=== PATIENT | male | born 1960 | race Caucasian/White ===

== ENCOUNTER 2024-03-17 09:35 | Outpatient (AMB) | payer MEDICARE, MEDICAID, SELFPAY ==
--- NOTE | 2024-03-17 09:51 | A.OFFVIS_ITS ---
Vital Signs 03/17/24 09:52 Height 5 ft 9 in Weight 197 lb 4 oz BMI 29.1 BP 122/68 Blood Pressure Location Rt brachial Position Sitting Respiration 16 Pulse 64 Pulse Source Pulse Oximeter Pulse Oximetry (%) 97 Oxygen Delivery Method Room Air Intake Visit Reasons: [id number] See comments Intake Note: New pt presents for consultation for Parkinson's and sleep disturbance. 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 He lost consciousness and was in the hospital. Since then he has short term memory issues.He strated noticing tremors in his left hand .he was told he had parkinsons disease. But had declined medications. His tremors are in his left hand at rest , posture , action and worsens with anxiety.He has trouble writing . No change in voice or drooling. He reports chronic sleep issues- frequent arousals, snoring and daytime sleepiness. He has vivid dreams. He has some gait issues - looses his balance a lot. He has chronic neck and back issues. [facility] Medical History (Updated 03/17/24 @ 10:24 by Shantelle Lopez MD) Hypersomnia Witnessed apneic spells Snoring Coarse tremors [place] user Tobacco use Migraine without aura Systolic CHF Essential hypertension Post concussive syndrome History of traumatic brain injury Hemiparkinsonism ICD (implantable cardioverter-defibrillator) in place Cyst of epididymis Hydrocele GERD (gastroesophageal reflux disease) Lumbar disc herniation Multiple pulmonary nodules Major depression, recurrent Pure hypercholesterolemia Obesity Surgical History History of implantable cardioverter-defibrillator (ICD) insertion Status post biventricular cardiac pacemaker insertion Social History Household Members: Family Housing: Apartment Alcohol intake: current Comment: Social Patient Tobacco Use Status: Former Tobacco user Years Smoked: 35 years Substance Use Type: Marijuana Substance Use Frequency Other:: Vape Physical Exam Vital Signs: Last Vital Signs Pulse 64 03/17/24 09:52 Resp 16 03/17/24 09:52 BP 122/68 03/17/24 09:52 Pulse Ox 97 03/17/24 09:52 Oxygen Delivery Method Room Air 03/17/24 09:52 BMI result Body Mass Index 29.1 Const General: cooperative and comfortable Nutritional Appearance: average body habitus Orientation/consciousness: patient oriented x3 Eyes Pupils: Equal, round and reactive pupils present Neuro Other: Good facial expression, blink Speech- normal Mallampatti grade 4 Mild intermittent tremors left hand at rest and posture No cog wheel rigidity FFm and foot taps limited due to joint pain Gait- back pain , antalgic General: patient oriented x3, tone normal, moves all extremities and no focal motor deficits Cranial nerves: Yes Facial sensation intact/muscles of mastication intact, Yes Equal, round and reactive pupils present, Yes Bilaterally intact EOM present, Yes Nystagmus not present, Yes Normal facial strength present and Yes Midline tongue present Motor exam (neuro): 5/5 motor strength present throughout and Normal motor muscle tone present throughout Deep tendon reflexes (DTR's): Right triceps reflex intensity grade: 1+, Left triceps reflex intensity grade: 1+, Rt Biceps (C5, C6): 1+, Left biceps reflex intensity grade: 1+, Right brachioradialis reflex intensity grade: 0, Left brachioradialis reflex intensity grade: 0, Right patellar reflex intensity grade: 0 and Left patellar reflex intensity grade: 0 Coordination: [id number] test normal Psych Appearance: grossly normal Assessment & Plan Assessment & Plan (1) Coarse tremors: Comment: atypical tremors post injury - will monitor for extrapyramidal symptoms. No evidence of parkinsons on today's exam Code(s): G25.2 - Other specified forms of tremor Category: Medical (2) Snoring: Code(s): R06.83 - Snoring Category: Medical (3) Witnessed apneic spells: Code(s): R06.81 - Apnea, not elsewhere classified Category: Medical (4) Hypersomnia: Code(s): G47.10 - Hypersomnia, unspecified Category: Medical Plan Will monitor for any signs of parkinsons disease. No evidence of parkinsons on todays exam Sleep study to r/o sleep apnea. Orders: Orders RT PSG in-lab sleep study Today G47.10 - Hypersomnia, unspecified, R06.81 - Apnea, not elsewhere classified, R06.83 - Snoring Coding Level of Care Code New Pt Level 4 (92809) Diagnoses Coarse tremors G25.2 Snoring R06.83 Witnessed apneic spells R06.81 Hypersomnia G47.10
[2024-03-17 09:52] VITALS: BP 122/68; PULSE 64; RESP 16; O2SAT 97; BMI 29.1
== END 2024-03-17 10:29 | disposition home or self-care (01) ==
PROVIDERS: PCP Internal Medicine; Visit Provider Psychiatry & Neurology Neurology
DX: G25.2 Other specified forms of tremor (principal); R06.83 Snoring; R06.81 Apnea, not elsewhere classified; G47.10 Hypersomnia, unspecified
CPT/HCPCS: 99204

== ENCOUNTER → 2024-03-17 09:35 | Outpatient (BNVA) | payer MEDICARE, MEDICAID, SELFPAY | PROVIDERS: PCP Internal Medicine; Visit Provider Psychiatry & Neurology Neurology | DX: G25.2 Other specified forms of tremor (principal); R06.83 Snoring; R06.81 Apnea, not elsewhere classified; G47.10 Hypersomnia, unspecified | CPT/HCPCS: 99202 ==

== ENCOUNTER → 2024-03-28 20:30 | Outpatient (REF) | payer MEDICARE, MEDICAID, SELFPAY | LOC: HO.SL 20:30 | PROVIDERS: PCP Internal Medicine; Visit Provider Psychiatry & Neurology Neurology | DX: R06.83 Snoring (principal); R06.81 Apnea, not elsewhere classified; G47.10 Hypersomnia, unspecified | CPT/HCPCS: 95810 ==

== ENCOUNTER → 2024-03-28 22:42 | Outpatient (BNV) | payer MEDICARE, MEDICAID, SELFPAY | PROVIDERS: PCP Internal Medicine; Visit Provider Psychiatry & Neurology Neurology | DX: G47.61 Periodic limb movement disorder (principal); G47.37 Central sleep apnea in conditions classified elsewhere | CPT/HCPCS: 95810 ==

== ENCOUNTER 2025-02-05 09:31 | Outpatient (AMB) | payer MEDICARE, MEDICAID, SELFPAY ==
[2025-02-05 09:41] VITALS: BP 100/80; PULSE 89; O2SAT 95; BMI 30.4
--- NOTE | 2025-02-05 09:41 | MHC.OFFVIS ---
Vital Signs 02/05/25 09:41 Height 5 ft 9 in Weight 206 lb BMI 30.4 BP 100/80 Blood Pressure Location Rt brachial Position Sitting Pulse 89 Pulse Source Pulse Oximeter Pulse Oximetry (%) 95 Oxygen Delivery Method Room Air Intake Visit Reasons: f/u for Parkinson's Assistant Corporate Secretary Required: No Accompanied by: Self / Same As Patient Allergies No Known Allergies Allergy (Verified 02/05/25 09:49) HPI Comments Details: 64y/o left handed male comes for follow up . 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 He lost consciousness and was in the hospital. Since then he has short term memory issues.He started noticing tremors in his left hand .he was told he had parkinsons disease. But had declined medications. His tremors are in his left hand at rest , posture , action and worsens with anxiety.He has trouble writing . No change in voice or drooling. He reports chronic sleep issues- frequent arousals, snoring and daytime sleepiness. He has vivid dreams. He has some gait issues - looses his balance a lot. He has chronic neck and back issues. [facility] Medical History (Updated 02/05/25 @ 10:03 by Shantelle Lopez MD) Periodic limb movements of sleep Central sleep apnea Hypersomnia Witnessed apneic spells Snoring Coarse tremors [place] user Tobacco use Migraine without aura Systolic CHF Essential hypertension Post concussive syndrome History of traumatic brain injury Hemiparkinsonism ICD (implantable cardioverter-defibrillator) in place Cyst of epididymis Hydrocele GERD (gastroesophageal reflux disease) Lumbar disc herniation Multiple pulmonary nodules Major depression, recurrent Pure hypercholesterolemia Obesity Surgical History History of implantable cardioverter-defibrillator (ICD) insertion Status post biventricular cardiac pacemaker insertion Social History Household Members: Family Housing: Apartment Alcohol intake: current Comment: Social Patient Tobacco Use Status: Former Tobacco user Years Smoked: 35 years Substance Use Type: Marijuana Physical Exam Vital Signs: Last Vital Signs Pulse 89 02/05/25 09:41 BP 100/80 02/05/25 09:41 Pulse Ox 95 02/05/25 09:41 Oxygen Delivery Method Room Air 02/05/25 09:41 BMI result Body Mass Index 30.4 Const General: cooperative and comfortable Nutritional Appearance: average body habitus Orientation/consciousness: patient oriented x3 Eyes Pupils: Equal, round and reactive pupils present Neuro Other: Good facial expression, blink Speech- normal Mallampatti grade 4 Mild intermittent tremors left hand at rest and posture No cog wheel rigidity FFm and foot taps limited due to joint pain Gait- back pain , antalgic General: patient oriented x3, tone normal, moves all extremities and no focal motor deficits Cranial nerves: Yes Facial sensation intact/muscles of mastication intact, Yes Equal, round and reactive pupils present, Yes Bilaterally intact EOM present, Yes Nystagmus not present, Yes Normal facial strength present and Yes Midline tongue present Motor exam (neuro): 5/5 motor strength present throughout and Normal motor muscle tone present throughout Coordination: [id number] test normal Psych Appearance: grossly normal Assessment & Plan Assessment & Plan (1) Central sleep apnea: Code(s): G47.31 - Primary central sleep apnea Category: Medical (2) Periodic limb movements of sleep: Code(s): G47.61 - Periodic limb movement disorder Category: Medical Plan Discussed sleep study results in detail - i will trial him on AutoPAP 5-20 cm fo wtaer and follow up to ensure compliance and therapy response Check ferritin B12 Vit D Coding Level of Care Code Est Pt Level 4 (06573) Complex EM visit Add On G2211 Diagnoses Central sleep apnea G47.31 Periodic limb movements of sleep G47.61
--- OUTSIDE RECORDS SUMMARY | 2025-02-05 09:57 | XMS_ITS | Clinical Summary ---
Author Organization [facility] Address [address] [address] Phone Care Team Providers Care Automobile Engine Assembler Name Role Phone Duke Jarvis MD Primary Care Provider Allergies No known active allergies Medications sacubitriL-vals carissa (Entresto) 24-26 mg per tablet Take 1 Tablet by mouth 2 times daily. 03/18/20 24 Active acetaminophen (TYLENOL 8 HOUR) 650 mg 8 hr tablet TAKE 1 TABLET BY MOUTH EVERY 8 HOURS NEEDED FOR PAIN 270 tablet 07/14/19 25 Active dapagliflozin propanediol (Farxiga) 10 mg tablet Take 1 tablet (10 mg total) by mouth 1 (one) time each day. 90 tablet 2 07/14/19 25 Active simvastatin (ZOCOR) 20 mg tablet TAKE 1 TABLET BY MOUTH EVERYDAY AT BEDTIME 90 tablet 1 01/08/20 25 Active spironolactone (ALDACTONE) 25 mg tablet TAKE 1 TABLET BY MOUTH EVERY DAY 90 tablet 1 01/08/20 25 Active metoprolol succinate (TOPROL-XL) 25 mg 24 hr tablet TAKE 1 TABLET BY MOUTH EVERY DAY 90 tablet 1 01/08/20 25 Active furosemide (LASIX) 40 mg tablet TAKE 1 TABLET BY MOUTH EVERY DAY 90 tablet 1 01/08/20 25 Active cholecalciferol (VITAMIN D-3) 125 mcg (5,000 unit) capsule Take 1 Capsule by mouth daily. 04/28/20 24 025 Discontinued(Th erapy completed) pantoprazole (PROTONIX) 40 mg EC tablet TAKE 1 TABLET BY MOUTH EVERY DAY 90 tablet 1 07/16/19 25 025 Discontinued(Th erapy completed) spironolactone (ALDACTONE) 25 mg tablet TAKE 1 TABLET BY MOUTH EVERY DAY 90 tablet 10/08/19 25 025 Discontinued simvastatin (ZOCOR) 20 mg tablet TAKE 1 TABLET BY MOUTH EVERYDAY AT BEDTIME 90 tablet 10/08/19 25 025 Discontinued furosemide (LASIX) 40 mg tablet TAKE 1 TABLET BY MOUTH EVERY DAY 90 tablet 10/08/19 025 Discontinued metoprolol succinate (TOPROL-XL) 25 mg 24 hr tablet TAKE 1 TABLET BY MOUTH EVERY DAY 90 tablet 10/08/19 025 Discontinued Active Problems Problem Noted Date Diagnosed Date Osteoporosis with current pathological fracture 04/15/2024 Compression fracture of lumb ar vertebra with delayed healing 04/10/2024 Overview (06/05/2024): Last Assessment & Plan: Patient describes low back pain, has history of falling a few times a little over 1 year ago, recalls 1 fall in the snow when he slipped in particular. He describes left posterior leg numbness, no weakness or radicular pain. There is mention of Parkinson's disease in another provider's note, patient states that was ruled out and he does not have Parkinson's disease. He states also contributing to his pain is from a (? Diaphragmatic) hernia causing anterior pain. On a good day his pain would be 4/10, pain tends to be worse at nighttime and he is not sleeping well, rates that pain 7-10/10. He had bone density study 03/27/2024 that showed very low bone density for his age. Mr. Slade had MRI lumbar spine 11/20/2023 at [facility] that showed multilevel degenerative changes, superior endplate compression fracture L5 with marrow edema on STIR imaging, also possible subtle endplate fracture along left superior S1 endplate as well. I reviewed the MRI images with the patient in detail. Dr. Dawn reviewed MRI today as well. Dr. Dawn recommends checking updated lumbar spine x-ray to see if there has been any change in the height of the L5 vertebral body, this MRI was done back in October, it is likely that the compression fracture may have healed over the last 4-5 months. I talked to the patient about treatment options for acute compression fractures, including kyphoplasty, which patient states he would not be interested in, but is willing to go for the lumbar x-ray since he still has back pain. We also talked about trying acupuncture. I asked him to call with any worsening symptoms, concerns or questions. All questions answered. ADDENDUM: I called and spoke with patient's healthcare proxy Tiffany Gonzalez, his niece, let her know that to my eye L5 compression fracture appears stable. They will try acupuncture and call with an update. All questions answered. (Patient came with his sister Sobeida to the office visit.). Other emphysema ([facility] V24, [facility] V28) 12/05 Heart failure with reduced e jection fraction ([facility] V24, [facility] V28) 07/06/2023 Overview (06/05/2024): Last Assessment & Plan: The patient appears euvolemic on exam today based on his report. He has not needed any of his as needed Lasix! This is fantastic news. Unfortunate, his blood pressure precludes further titration of his ARNI, but he is doing well on his current medication regimen. He is BiV paced 100% of the time and his heart logic is 0 indicating euvolemia. For now, continue his SGLT2 inhibitor, ARNI, beta-adam and MRA. Update his echocardiogram at his convenience to follow on GDMT along with his WAREHOUSE MATERIAL HANDLER. The patient seems to have a GI issue, possibly a hernia. He is agreeable to GI evaluation. Apparently, he declined this with his PCP asked previously, but he agrees to it today for me. There are no cardiovascular contraindications to any GI workup at this time. Hiatal hernia 05/06/2018 Obesity (BMI 30-39.9) 04/02/2018 Episode of recurrent major d epressive disorder ([facility] V24) 03/08/2018 Pure hypercholesterolemia 03/08/2018 Overview (06/05/2024): Last Assessment & Plan: Well-controlled lipid profile without known coronary artery disease on current dose statin. Continue the same GERD (gastroesophageal reflux disease) 8 Overview (06/05/2024): 03/2013 small hiatal hernias w/GERD; gastritis of gastric antrum; no path report Lumbar disc herniation 02/06/2018 Overview (06/05/2024): 07/2015 L5-S1, interval enlargement when compared to 2014; 2011 fracture deformity of L2 Multiple pulmonary nodules 02/06/2018 Overview (06/05/2024): 10/2016 CT scan small pulmonary nodules measuring up to 6 mm; stable on CT 04/2018 follows with pulmonary Cyst of epididymis 01/29/2018 Hydrocele 01/29/2018 Hemiparkinsonism (CMS/HCC V24, CMS/HCC V28) 12/31 Overview (06/05/2024): Left upper arm tremor, previously on Sinemet, Neupro patch and Selegiline and undergoing cognitive remediation therapy through neurology 2 years ago. ICD (implantable cardioverter-defibrillator) in place 01/23/2018 Overview (06/05/2024): 2016 Essential hypertension 01/01/2018 Overview (06/05/2024): Last Assessment & Plan: Patient's blood pressure is well-controlled on his current regimen of SGLT2, ARNI, beta-adam and MRA. Continue to follow Marijuana use 01/01/2018 Overview (06/05/2024): Cbd oil vapor Migraine without aura and wi thout status migrainosus, not intractable 01/01/2018 Post concussive syndrome 01/01/2018 Overview (06/05/2024): S/p trauma 2011 Encounters Date Type Department Care Team Description 01/23/2025 1:15 PM EDT Ancillary Procedure [facility] [address] [facility] [address] [place] [address] 01/09/2025 1:00 PM EDT Office Visit Adult Medicine [address] [address] Nancy Angeles PA Essential hypertension (Primary Dx); Pure hypercholesterolemia ; Heart failure with reduced ejection fraction (CMS/HCC V24, CMS/HCC V28); ICD (implantable cardioverter-defibri llator) in place; Epigastric pain; Vitamin D deficiency 12/22/2024 Telephone [facility] [address] [facility] [address] [place] [address] Elizabeth Jin MD NEOS --Left Shoulder Arthroscopy (Left Shoulder Arthroscopy -- [facility]OS ) 12/16/2024 10:40 AM EDT Ancillary Procedure [facility] [address] [facility] [address] [place] [address] 12/15/2024 Telephone Adult Medicine [address] [phone] Duke Jarvis MD Referral 11/07/2024 5:10 AM EDT Ancillary Procedure [facility] [address] [facility] [address] [place] [address] from Last 3 Months Immunizations Name Administration Dates Next Due Influenza trivalent, with pr eservative (Fluzone; Afluria) 6mo and older 03/18/2024 Pneumococcal conjugate 20 va lent (Prevnar 20, PCV 20) 2mo and older 03/18/2024 Tdap Tetanus diptheria acell ular pertussis (Boostrix; Adacel) 7yo and older 03/18/2024 Surgical History Surgery Date Site/Laterality Comments OTHER SURGICAL HISTORY 2016 PROCEDURE: HISTORICAL ICD UPPER GASTROINTESTINAL ENDOSCOPY 03/10/2013 PROCEDURE: UPPER GI ENDOSCOPY/EXAM; COMMENT: small hiatal hernias w/GERD; gastritis of gastric antrum; no path report Medical History Medical History Date Comments Essential hypertension 01/01/2018 DX:Essent ial hypertension Migraine without aura and wi thout status migrainosus, not intractable 01/01/2018 DX:Migraine withou t aura and without status migrainosus, not intractable Marijuana use 01/01/2018 DX:Marijuana use ; COMMENT: Cbd oil vapor History of tobacco use 01/01/2018 DX:Histor y of tobacco use ICD (implantable cardioverter-defibrillator) in place 01/23/2018 DX:ICD (implantab le cardioverter-defibrillator) in place; COMMENT: 2015 Post concussive syndrome 01/01/2018 DX:Post concussive syndrome History of traumatic brain injury 01/23/2018 DX:History of traumatic brain injury; COMMENT: 2010 Hemiparkinsonism (CMS/HCC V2 4, CMS/HCC V28) 01/23/2018 DX:Hemiparkinsonism (HCC); C OMMENT: Post traumatic unilateral- Left side Lumbar disc herniation 02/06/2018 DX:Lumbar disc herniation; COMMENT: 07/2015 L5-S1, interval enlargement when compared to 2014; 2011 fracture deformity of L2 GERD (gastroesophageal reflu x disease) 02/06/2018 DX:GERD (gastroesophageal re flux disease); COMMENT: 03/2013 small hiatal hernias w/GERD; gastritis of gastric antrum; no path report Hydrocele 01/29/2018 DX:Hydrocele Systolic congestive heart fa ilure, NYHA class 2 (CMS/HCC V24, CMS/HCC V28) 01/01/2018 DX:Systolic congestive heart failure, NYHA class 2 ([facility]); COMMENT: 35 % on nuclear echo 09/2017. Follows with cardiology NICM S/p AICD Obesity (BMI 30-39.9) 04/02/2018 DX:Obesity (BMI 30-39.9) Pure hypercholesterolemia 03/08/2018 DX:Pur e hypercholesterolemia Episode of recurrent major d epressive disorder (CMS/HCC V24) 03/08/2018 DX:Episode of recurrent ellis r depressive disorder (HCC) Cyst of epididymis 01/29/2018 DX:Cyst of ep ididymis Multiple pulmonary nodules 02/06/2018 DX:Mu ltiple pulmonary nodules; COMMENT: 10/2016 CT scan small pulmonary nodules measuring up to 6 mm; stable on CT 04/2018 follows with pulmonary Arthritis DX:Arthritis Anxiety and depression DX:Anxiet y and depression Difficulty balancing DX:Difficul ty balancing Family History Medical History Relation Name Comments Hypertension Father unknown cause, likely cancer Diabetes Mother ESRD, Hypertens ion Heart failure Mother Lung cancer Sister 1 Leukemia Sister 2 Relation Name Status Comments Brother Alive Father Mother Alive Sister 1 Sister 2 Social History Tobacco Use Types Packs/Day Years Used Date Smoking Tobacco: Former Cigarettes Q uit: 01/02/2008 Smokeless Tobacco: Never Tobacco Cessation:Counseling Given: Not Answered Alcohol Use Standard Drinks/Week Comments No 0 (1 standard drink = 0.6 oz pur e alcohol) Housing Instability Answer Date Recorde d Are you worried that in the next 2 months you may not have stable housing? No 01/09/2025 Food Access & Nutrition Answer Date Rec orded Do you have access to a vari ety of food including fruits and vegetables? Yes 01/09/2025 Health Literacy Answer Date Recorded How often do you need to hav e someone help you when you read instructions, pamphlets, or other written material from your doctor or pharmacy? Never 01/09/2025 Caregiver: How often do you need to have someone help you when you read instructions, pamphlets, or other written material from your doctor or pharmacy? Not on file 01/09/2025 Financial Risk Answer Date Recorded How hard is it for you to pa y for the very basics like food, housing, medical care, and air conditioning / heating? Not very hard 01/09/2025 Transportation Answer Date Recorded Has the lack of transportati on kept you from meetings, work, or from getting things needed for daily living? No Has the lack of transportati on kept you from medical appointments or from getting medications? No 01/09/2025 Social Isolation Answer Date Recorded How often do you feel lonely or isolated from th ose around you? Never 01/09/2025 Food Risk Answer Date Recorded Within the past 12 months we worried whether our food would run out before we got money to buy more. Never true 01/09/2025 Within the past 12 months th e food we bought just didn't last and we didn't have money to get more. Never true 01/09/2025 Dependent Care Answer Date Recorded Do you need help finding or paying for care for your loved ones. For example, child support case officer or elderly care for an older adult? No 01/09/2025 Education Answer Date Recorded Do you think completing more education or training, like finishing a GED, going to college, or learning a trade, would be helpful for you? No 01/09/2025 Employment and Income Answer Date Recor ded During the last four weeks, have you been actively looking for work? No 01/09/2025 Living Situation Answer Date Recorded What is your living situation? 0 01/09/2025 Sex and Gender Information Value Date Recorded Sex Assigned at Not on file Legal Sex Male 1:14 PM EST Gender Identity Not on file Sexual Orientation Not on file Obstetrics History Last Filed Vital Signs Vital Sign Reading Time Taken Comments Blood Pressure 119/80 01/09/2025 12:48 PM EDT Pulse 77 01/09/2025 12:48 PM EDT Temperature 36.2 C (97.2 F) 01/09/2025 12:48 PM EDT Respiratory Rate 14 01/09/2025 12:48 PM EDT Oxygen Saturation - - Inhaled Oxygen Concentration - - Weight 95.3 kg (210 lb 3.2 oz) 01/09/2025 12:48 PM EDT Height 175.3 cm (5' 9 ) 01/09/2025 12:48 PM EDT Body Mass Index 31.04 01/09/2025 12:48 PM EDT Plan of Treatment Upcoming Encounters Date Type Department Care Team (Late st Contact Info) Description 02/16/2025 10:50 AM EDT Consult [facility] [address] [facility] [address] [place] [address] Elizabeth Jin MD [address] [place] [address] 05/14/2025 11:00 AM EST Office Visit Adult Medicine [address] [phone] Duke Jarvis MD [address] [place] [address] Health Maintenance Due Date Last Done Comments Zoster Vaccines (1 of 2) 2011 RSV Immunization Adult Patients (1 - Risk 60-74 years 1-dose series) 2021 Colorectal Cancer Screening: Colonoscopy 05/30/2022 HIV Screening 05/30/2022 Hepatitis C Screening 05/30/2022 Medicare Annual Wellness Visit 05/30/2022 COVID-19 Vaccine (3 - 2023-2 5 season) 2024 03/21/2021, 02/21/2021 Influenza Vaccine (#1) 2025 03/18/2024 Hypertension/CHF/CAD Annual BMP Blood Test 04/22/2025 04/22/2024, 04/22/2024, 11/05/2023 Social Influencers of Health Screening 01/09/2026 01/09/2025 Cholesterol Screening (Lipid Panel) 11/04/2028 11/05/2023, 11/05/2023 DTaP,Tdap,and Td Vaccines (2 - Td or Tdap) 03/18/2034 03/18/2024 Pneumococcal Vaccine: 50+ Years Completed 03/18/2024 Depression Screening Completed 01/09/2025, 07/06/2023 HIB Vaccines Aged Out No longer eligi ble based on patient's age to complete this topic HPV Vaccines Aged Out No longer eligi ble based on patient's age to complete this topic Hepatitis A Vaccines Aged Out No long er eligible based on patient's age to complete this topic Hepatitis B Vaccines Aged Out No long er eligible based on patient's age to complete this topic IPV Vaccines Aged Out No longer eligi ble based on patient's age to complete this topic MMR Vaccines Aged Out No longer eligi ble based on patient's age to complete this topic Meningococcal ACWY Vaccine Aged Out N o longer eligible based on patient's age to complete this topic Meningococcal B Vaccine Aged Out No l onger eligible based on patient's age to complete this topic RSV Immunization Patients Under 20 months Aged Out No longer eligible b ased on patient's age to complete this topic Varicella Vaccines Aged Out No longer eligible based on patient's age to complete this topic Medical Devices Implanted Type Area Cobbler Upper Device Identifier Shelf Expiration Date Model / Serial / Lot Bsci-Crm [id number] Implanted:07/02 (Quantity not on file) Cardiac WAREHOUSE MATERIAL HANDLER-D ICD [employer] RHYTHM MGMT [id number] / [id number] / Procedures Procedure Name Priority Date/Time Associated Diagnosis Comments CARDIAC DEVICE CHECK- REMOTE- MURJ Routine 01/23/2025 1:12 PM EDT ELECTROLYTE PANEL Routine 01/09/2025 12: 16 PM EDT Preop examination CARDIAC DEVICE CHECK- REMOTE- MURJ Routine 12/16/2024 10:36 AM EDT CARDIAC DEVICE CHECK- REMOTE- MURJ Routine 11/07/2024 5:09 AM EDT ANNUAL BMP BLOOD TEST Routine 04/22/2024 LIPID PANEL Routine 11/05/2023 DEPRESSION SCREENING Routine 07/06/2023 from Last 3 Months or Most Recently Relevant to Health Maintenance Results * Cardiac device check - Remote- MURJ (01/23/2025 1:12 PM EDT) Only the most recent of3 resultswithin the time period is included. Date Time Interrogation Session [id number] CV DEVICE CHECK Type Interrogation Session Remote Scheduled CV DEVICE CHECK Implantable Pulse Generator Cobbler Upper BSX CV DEVICE CHECK Implantable Pulse Generator Type WAREHOUSE MATERIAL HANDLER-D CV DEVICE CHECK Implantable Pulse Generator Model [id number] CV DEVICE CHECK Implantable Pulse Generator Serial Number [id number] CV DEVICE CHECK Implantable Pulse Generator Implant Date [id number] CV DEVICE CHECK Battery Remaining Percentage 100.00 CV DEVICE CHECK Battery Remaining Longevity 96.0 CV DEVICE CHECK Battery Status Beginning of Service CV DEVICE CHECK Capacitor Charge Time 10.600 CV DEVICE CHECK Michael Statistic RA Percent Paced 9.00 CV DEVICE CHECK Michael Statistic RV Percent Paced 100.00 CV DEVICE CHECK WAREHOUSE MATERIAL HANDLER Statistic LV Percent Paced 100.00 CV DEVICE CHECK Atrial Tachy Statistic AT/AF Haswell Percent 1.00 CV DEVICE CHECK Lead Channel Sensing Intrinsic Amplitude 6.100 CV DEVICE CHECK Lead Channel Setting Sensing Sensitivity 0.25 CV DEVICE CHECK Lead Channel Impedance Value 463 CV DEVICE CHECK Lead Channel Pacing Threshold Amplitude 0.900 CV DEVICE CHECK Lead Channel Pacing Threshold Pulse Width 0.4 CV DEVICE CHECK Lead Channel RA Pacing Threshold Date 2025-01-12 CV DEVICE CHECK Lead Channel Setting Pacing Amplitude 2.200 CV DEVICE CHECK Lead Channel Setting Pacing Pulse Width 0.4 CV DEVICE CHECK Lead Channel Setting Sensing Sensitivity 0.60 CV DEVICE CHECK Lead Channel Impedance Value 525 CV DEVICE CHECK Lead Channel Pacing Threshold Amplitude 0.900 CV DEVICE CHECK Lead Channel Pacing Threshold Pulse Width 0.4 CV DEVICE CHECK Lead Channel RV Pacing Threshold Date 2025-01-12 CV DEVICE CHECK Lead Channel Setting Pacing Amplitude 2.000 CV DEVICE CHECK Lead Channel Setting Pacing Pulse Width 0.4 CV DEVICE CHECK Lead Channel Impedance Value 635 CV DEVICE CHECK Lead Channel Pacing Threshold Amplitude 1.700 CV DEVICE CHECK Lead Channel Pacing Threshold Pulse Width 0.4 CV DEVICE CHECK Lead Channel Pacing Threshold Date 2025-01-12 CV DEVICE CHECK Lead Channel Setting Pacing Amplitude 2.900 CV DEVICE CHECK Lead Channel Setting Pacing Pulse Width 0.4 CV DEVICE CHECK Michael Setting Mode (NBG Code) DDD CV DEVICE CHECK Ventricular chambers paced during WAREHOUSE MATERIAL HANDLER pacing. BiV CV DEVICE CHECK Michael Setting Lower Rate Limit 60 CV DEVICE CHECK Mihcael Setting AT Mode Switch Rate 170 CV DEVICE CHECK Michael Setting Maximum Tracking Rate 120 CV DEVICE CHECK Michael Setting PAV Delay 170 CV DEVICE CHECK Michael Setting DIMITRIS Delay 130 CV DEVICE CHECK WAREHOUSE MATERIAL HANDLER LV-RV Delay 40 CV D EVICE CHECK Therapy Statistic Recent Shocks Delivered 0 CV DEVICE CHECK Therapy Statistic Recent Shocks Aborted 0 CV DEVICE CHECK Therapy Statistic Recent ATP Delivered 0 CV DEVICE CHECK Shock Measured Impedance 83 CV DEVICE CHECK Zone Setting Type Category VF CV DEVICE CHECK Rate 240 CV DEVICE CHECK Therapies 41J,41J,41J x 6 CV D EVICE CHECK Zone Setting Status On CV DEVICE CHECK Zone ID 1 CV DEVICE CHECK Zone Setting Type Category VT CV DEVICE CHECK Rate 200 CV DEVICE CHECK Therapies Burst,41J,41J,41J x 4 CV DEVICE CHECK Zone Setting Status On CV DEVICE CHECK Zone ID 2 CV DEVICE CHECK Zone Setting Type Category VT CV DEVICE CHECK Rate 165 CV DEVICE CHECK Zone Setting Status Monitor CV DEVICE CHECK Zone ID 3 CV DEVICE CHECK Date of Service 2025-01-26 CV DEVICE CHECK Anatomical Region Laterality Modality Device Interroga tion 01/14/2025 3:22 AM EDT Impressions 01/23/2025 1:04 PM EDT HeartLogic Index: Stable * HeartLogic diagnostics assessed through the device * Current HeartLogic HF Index: _2__ * No overt HF present Narrative Procedure Note Akbar Thomason MD - 01/23/2025 IMPRESSION: HeartLogic Index: Stable * HeartLogic diagnostics assessed through the device * Current HeartLogic HF Index: _2__ * No overt HF present Akbar Thomason MD CV IMPLANTABLE CARDIAC DEVICE PROCEDURES Final Result * Electrolyte panel (01/09/2025 12:16 PM EDT) [facility] Sodium 137 133 - 145 mmol/L LAB CHEMISTRY METHOD 01/09/2025 5:14 PM EDT [facility] Potassium 4.3 3.5 - 5.5 mmol/L LAB CHEMISTRY METHOD 01/09/2025 5:14 PM EDT [facility] Chloride 107 96 - 110 mmol/L LAB CHEMISTRY METHOD 01/09/2025 5:14 PM EDT [facility] CO2 25 21 - 32 mmol/L LAB CHEMISTRY METHOD 01/09/2025 5:14 PM EDT [facility] Anion Gap 5 3 - 11 LAB CHEMISTRY METHOD 01/09/2025 5:14 PM EDT [facility] Blood Venous blood specimen / Unknown Venipuncture / Unknown 01/09/2025 12:16 PM EDT 01/09/2025 12:16 PM EDT Ki Lora MD LAB BLOOD ORDERABLES Final Resul t [facility] [address] [place] [address], * Annual BMP Blood Test (04/22/2024) [facility] Annual [facility] Blood Test Abstracted Kiran Grewal MD HEALTH MAINTENANCE Final Result * (ABNORMAL) Lipid panel (11/05/2023) [facility] LDL/HDL Ratio 4 0 - 4 Triglycerides 168(A) 0 - 150 mg/dL Cholesterol 173 0 - 200 mg/dL HDL 42 >=40 mg/dL LDL Cholesterol 98 0 - 100 mg/dL Blood Venous blood specimen / Unknown Historical Provider LAB BLOOD ORDERABLES Carrie l Result * Depression Screening (07/06/2023) Depression Screening Abstracted Historical Provider HEALTH MAINTENANCE Final Result from Last 3 Months or Most Recently Relevant to Health Maintenance Insurance [place]ICARE [place]ICAID [place] Advance Directives Documents on File Type Date Recorded Patient Diagnostic Imaging Manager Expl anation Health Care Decision (hx) 06/22/2023 HE ALTH CARE PROXY Health Care Decision (hx) 06/22/2023 HE ALTH CARE PROXY Health Care Decision (hx) 06/22/2023 HE ALTH CARE PROXY Health Care Decision (hx) 06/22/2023 HE ALTH CARE PROXY Health Care Decision (hx) 06/22/2023 HE ALTH CARE PROXY Health Care Decision (hx) 06/22/2023 HE ALTH CARE PROXY Health Care Decision (hx) 06/22/2023 HE ALTH CARE PROXY Care Teams Automobile Engine Assembler Relationship Specialty Start Date End Date Duke Jarvis MD [address] [place] [address] PCP - General 07/05/23
== END 2025-02-05 10:12 | disposition home or self-care (01) ==
LOC: HO.HSMS 09:32
PROVIDERS: PCP Internal Medicine; Visit Provider Psychiatry & Neurology Neurology
DX: G47.31 Primary central sleep apnea (principal); G47.61 Periodic limb movement disorder
CPT/HCPCS: 99214; G2211

== ENCOUNTER → 2025-02-05 09:31 | Outpatient (BNVA) | payer MEDICARE, MEDICAID, SELFPAY | PROVIDERS: PCP Internal Medicine; Visit Provider Psychiatry & Neurology Neurology | DX: G47.31 Primary central sleep apnea (principal); G47.61 Periodic limb movement disorder | CPT/HCPCS: 99212 ==